=== PATIENT | female | born 1965 | race Asian ===

== ENCOUNTER 2016-05-01 07:17 | Day surgery (SDC) | payer BC ==
--- NOTE | ~2016-05-01 | EGD ---
EGD REPORT [facility] [address] [place] [address] NAME: EMILY KRAUSE : 67 STATUS : REG [facility]#: [id number] AGE: 51 ADM/REG DATE : 05/01/16 MR#: [id number] REPORT SERV DATE: 05/01/16 DICTATED BY: JAIRO DAVALOS DATE: 05/01/16 REPORT STATUS : Draft TRANSCRIBED BY: [facility] DATE: 05/01/16 Endoscopy Center Patient Name: Emily Krause Date of : 1965 Attending MD: JAIRO DAVALOS, Procedure Date No Time: 05/01/2016 Procedure: Colonoscopy Indications: Screening for colorectal malignant neoplasm, This is the patient's first colonoscopy Referring MD: HANY KENNEDY Medicines: Propofol per Anesthesia Complications: No immediate complications. Estimated blood loss: None. Procedure: Pre-Anesthesia Assessment: - ASA Grade Assessment: II - A patient with mild systemic disease. After I obtained informed consent, the scope was passed under direct vision. Throughout the procedure, the patient's blood pressure, pulse, and oxygen saturations were monitored continuously. The PCF [id number] was introduced through the anus and advanced to the terminal ileum. The colonoscopy was performed with ease. The patient tolerated the procedure well. The quality of the bowel preparation was good. Findings: The perianal exam was abnormal. Findings include non-thrombosed external hemorrhoids. The terminal ileum appeared normal. A sessile polyp was found in the transverse colon. The polyp was 5 mm in size. The polyp was removed with a cold snare. Resection and retrieval were complete. Estimated blood loss: none. Impression: - Non-thrombosed external hemorrhoids found on perianal exam. - The examined portion of the ileum was normal. - One 5 mm polyp in the transverse colon. Resected and retrieved. Recommendation: - Patient has a contact number available for emergencies. The signs and symptoms of potential delayed complications were discussed with the patient. Return to normal activities tomorrow. Written discharge instructions were provided to the patient. - Regular diet. - Discharge patient to home (with escort). EGD REPORT [address] [address] NAME: EMILY KRAUSE : [birth year] STATUS : REG [facility] PAT#: [id number] AGE: 51 ADM/REG DATE : 05/01/16 MR#: [id number] REPORT SERV DATE: 05/01/16 DICTATED BY: JAIRO DAVALOS DATE: 05/01/16 REPORT STATUS : Draft TRANSCRIBED BY: [employer] DATE: 05/01/16 - Continue present medications. - Await pathology results. - Repeat colonoscopy in 5 years for surveillance. - Return to GI clinic in 4 weeks. Procedure Code(s): --- Professional --- 13947, Colonoscopy, flexible, proximal to splenic flexure; with removal of tumor(s), polyp(s), or other lesion(s) by snare technique Diagnosis Code(s): --- Professional --- K64.4, Residual hemorrhoidal skin tags D12.3, Benign neoplasm of transverse colon Z12.11, Encounter for screening for malignant neoplasm of colon CPT copyright 2013 [employer]. All rights reserved. The codes documented in this report are preliminary and upon milling machine operator review may be revised to meet current compliance requirements. JAIRO DAVALOS, 05/01/2016 9:59 AM This report has been signed electronically. Number of Addenda: 0 Note Initiated On: 05/01/2016 8:58 AM Scope Withdrawal Time 0 hours 8 minutes 22 seconds [address] [place] [address]
--- NOTE | ~2016-05-01 | EGD ---
EGD REPORT [facility] [address] [place] [address] NAME: EMILY KRAUSE : 67 STATUS : REG [facility]#: [id number] AGE: 51 ADM/REG DATE : 05/01/16 MR#: [id number] REPORT SERV DATE: 05/01/16 DICTATED BY: JAIRO DAVALOS DATE: 05/01/16 REPORT STATUS : Draft [facility] DATE: 05/01/16 Endoscopy Center Patient Name: Emily Krause Date of : 1965 Attending MD: JAIRO DAVALOS, Procedure Date No Time: 05/01/2016 Procedure: Upper GI endoscopy Indications: Dyspepsia, Early satiety Referring MD: HANY KENNEDY Medicines: Propofol per Anesthesia Complications: No immediate complications. Estimated blood loss: None. Procedure: Pre-Anesthesia Assessment: - ASA Grade Assessment: II - A patient with mild systemic disease. After obtaining informed consent, the endoscope was passed under direct vision. Throughout the procedure, the patient's blood pressure, pulse, and oxygen saturations were monitored continuously. The GIF H190 [id number] was introduced through the mouth, and advanced to the second part of duodenum. The upper GI endoscopy was accomplished with ease. The patient tolerated the procedure well. Findings: The examined esophagus was normal. The Z-line was irregular and was found 36 cm from the incisors. The entire examined stomach was normal. Biopsies were taken with a cold forceps for Helicobacter pylori testing. Estimated blood loss: none. The duodenal bulb and 2nd part of the duodenum were normal. Impression: - Normal esophagus. - Z-line irregular, 36 cm from the incisors. - Normal stomach. Biopsied. - Normal duodenal bulb and 2nd part of the duodenum. Recommendation: - Patient has a contact number available for emergencies. The signs and symptoms of potential delayed complications were discussed with the patient. Return to normal activities tomorrow. Written discharge instructions were provided to the patient. - Regular diet. - Discharge patient to home (with escort). - Continue present medications. INCREASE your omeprazole to 40mg PO daily for dyspepsia - Await pathology results. EGD REPORT [place] [address] [place]. [address] NAME: EMILY KRAUSE : [birth year] STATUS : REG [facility] PAT#: [id number] AGE: 51 ADM/REG DATE : 05/01/16 MR#: [id number] REPORT SERV DATE: 05/01/16 DICTATED BY: JAIRO DAVALOS DATE: 05/01/16 REPORT STATUS : Draft TRANSCRIBED BY: [employer] DATE: 05/01/16 - Return to GI clinic in 4 weeks. Procedure Code(s): --- Professional --- 47717, Esophagogastroduodenoscopy, flexible, transoral; with biopsy, single or multiple Diagnosis Code(s): --- Professional --- K22.8, Other specified diseases of esophagus K30, Functional dyspepsia R68.81, Early satiety CPT copyright 2013 [employer]. All rights reserved. The codes documented in this report are preliminary and upon medical records coder review may be revised to meet current compliance requirements. JAIRO DAVALOS, 05/01/2016 9:42 AM This report has been signed electronically. Number of Addenda: 0 Note Initiated On: 05/01/2016 8:53 AM Scope Withdrawal Time 0 hours 0 minutes 0 seconds [address] [place] [address]
[~2016-05-01 07:17] MED LIST: C5; CALTRA600D PO; FISH-EPA1000 MG PO; PRILO PO
[2016-05-01 07:46] LABS: INTERNATIONAL NORMAL RATI 1.1 UNITS (-); PROTIME (NOT ORD) 14.3 SEC (12.0-14.5)
== END 2016-05-01 23:59 | disposition home or self-care (01) ==
LOC: DMU 07:17
PROVIDERS: Anesthesiology; Internal Medicine Gastroenterology
PROC: 0DBL8ZX Excision of Transverse Colon, Via Natural or Artificial Opening Endoscopic, Diagnostic (ICD-10-PCS; principal; 2016-05-01 10:00)
PROC: 0DB68ZX Excision of Stomach, Via Natural or Artificial Opening Endoscopic, Diagnostic (ICD-10-PCS; 2016-05-01 10:00)
DX: Z12.11 Encounter for screening for malignant neoplasm of colon (principal); D12.3 Benign neoplasm of transverse colon; K64.4 Residual hemorrhoidal skin tags; K30 Functional dyspepsia; K21.9 Gastro-esophageal reflux disease without esophagitis; Z86.718 Personal history of other venous thrombosis and embolism; Z90.710 Acquired absence of both cervix and uterus; Z79.52 Long term (current) use of systemic steroids; Z79.01 Long term (current) use of anticoagulants; Z79.899 Other long term (current) drug therapy; Z98.890 Other specified postprocedural states
CPT/HCPCS: 85610; 88305